=== PATIENT | female | born 1970 | race African-American/Black ===

== ENCOUNTER 2017-06-21 15:55 | Emergency (ER) | payer OTHER, BC ==
[~2017-06-21] VITALS: Ht 160 cm; Wt 57.6 kg
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
== END 2017-06-21 19:29 | disposition home or self-care (01) ==
LOC: CED 15:55
DX: S13.9XXA Sprain of joints and ligaments of unspecified parts of neck, initial encounter (principal); S20.219A Contusion of unspecified front wall of thorax, initial encounter; S50.812A Abrasion of left forearm, initial encounter; F32.9 Major depressive disorder, single episode, unspecified; Z23 Encounter for immunization; W22.11XA Striking against or struck by driver side automobile airbag, initial encounter; V23.4XXA Motorcycle driver injured in collision with car, pick-up truck or van in traffic accident, initial encounter
CPT/HCPCS: 70450; 71020; 72040; 90471; 90715; 99284